=== PATIENT | female | born 1975 | race Caucasian/White ===

== ENCOUNTER → 2016-07-09 | Outpatient (CLI) | payer MEDICAID ==
[~2016-07-09] MED LIST: ALBUTEROL2 PUFFS/17 IN; B COMPLEX & B121 TAB PO; BIAXIN500 MG PO; HYDROCODONE-APA1 TA1 PO; MEDROL 4MG. DOSE4 MG PO; NAPROSYN 500MG500 MG PO; NEXIUM40 MG PO; NORCO 325 MG-51 TAB PO; PREDNISONE 10MG10 MG PO; PROPRANOLOL HCL20 MG PO; SYNTHROID0.025 MG PO; Tramadol HCl50 MG PO; ULTRACET 325 MG1 TAB PO; ULTRAM 50 MG TA50 MG PO; ZITHROMAX Z PA250 MG PO
== END ==
LOC: PT 06-27 10:00 → RT 12:56
DX: R06.02 Shortness of breath (principal)

== ENCOUNTER → 2016-08-07 | Outpatient (CLI) | payer MEDICAID ==
--- NOTE | 2016-08-07 16:54 | RADIOLOGY REPORT PS360 ---
US PELVIS-TRANSVAGINAL ONLY HISTORY: Right-sided pelvic pain RLQ PAIN ORDERING PHYSICIAN: Jay Padron MD PATIENT AGE: 40 years COMPARISON: None FINDINGS: There has been prior hysterectomy and left oophorectomy. There is a small hyperechoic focus at the vaginal cuff measuring 4 mm. This is of questionable clinical significance. The right ovary has an unremarkable appearance measuring 4 x 2.4 cm. Blood flow is present. There are a few small follicles. No cul-de-sac fluid apparent. IMPRESSION: 1. Prior left oophorectomy and hysterectomy with a small hyperechoic focus at the vaginal cuff etiology indeterminate. 2. Unremarkable appearing right ovary
== END ==
LOC: RAD 07-30 13:00
DX: R10.2 Pelvic and perineal pain (principal)

== ENCOUNTER → 2016-08-30 | Outpatient (CLI) | payer MEDICAID ==
--- NOTE | 2016-08-30 15:35 | RADIOLOGY REPORT PS360 ---
CT ABD PELVIS W/O CONTRAST CLINICAL INDICATION: ABD PAIN, H/O BLADDER CA ORDERING PHYSICIAN: Gallo Davis MD PATIENT AGE: 40 years COMPARISON: 02/10/2010 TECHNIQUE: Axial images obtained with sagittal and coronal reformats. PROCEDURE: Oral Contrast: Redicat IV Contrast: [None] . FINDINGS: Lung bases are clear. No focal liver lesion. The gallbladder, spleen, adrenal glands, and pancreas has an unremarkable unenhanced CT appearance. No obstructing renal or ureteral calculi are evident. Tiny punctate calculus is present in the upper pole the right kidney. Tiny umbilical hernia containing fat. No evidence of appendicitis or diverticulitis. No intestinal obstruction or free air. There has been prior hysterectomy. No focal inflammatory change or mass or abnormal fluid collection. Urinary bladder has an unremarkable appearance The presacral stimulator device is noted. No acute bony anomalies. IMPRESSION: 1. No acute intra-abdominal or pelvic pathology. 2. Nonacute findings as described above.
== END ==
LOC: RAD 09:56
DX: R10.9 Unspecified abdominal pain (principal); Z85.51 Personal history of malignant neoplasm of bladder

== ENCOUNTER → 2017-01-29 | Outpatient (CLI) | payer MEDICAID ==
--- NOTE | 2017-01-29 13:32 | RADIOLOGY REPORT PS360 ---
HIP LT 2-3V W/PELVIS IF PERFOR HISTORY: LT HIP PAIN ORDERING PHYSICIAN: Morris Chua MD PATIENT AGE: 41 years COMPARISON: 02/29/2016 FINDINGS: No fracture or dislocation is evident. There are mild osteoarthritic changes of the left tibia and also the right hip. No lytic or blastic change. A neurostimulator device remains in place overlying the right aspect sacrum. IMPRESSION: Mild osteoarthritic change left hip. No significant change from 916
== END ==
LOC: RAD 12:49
DX: M25.552 Pain in left hip (principal)

== ENCOUNTER → 2017-05-23 | Outpatient (CLI) | payer MEDICAID ==
[~2017-05-23] MED LIST changes: +AMITIZA24 MCG; +CENTRUM ADULTS1 EACH; +CLARITIN LIQUI-10 MG; +FLONASE 50 MCG16 GM; +GLUCOSAMINE & C1 CA2; +GOOD SENSE OMEP20 MG; +LISINOPRIL 20MG20 MG; +PANTOPRAZOLE40 M1; +SINGULAIR 10 MG10 MG
[2017-05-30 07:38] LABS: F013-IgE Peanut <0.10 kU/L (Class 0); F017-IgE Hazelnut (Filbert) <0.10 kU/L (Class 0); F018-IgE Brazil Nut <0.10 kU/L (Class 0); F020-IgE Almond <0.10 kU/L (Class 0); F202-IgE Cashew Nut <0.10 kU/L (Class 0); F256-IgE Walnut <0.10 kU/L (Class 0)
== END ==
LOC: LAB 13:37
PROVIDERS: Nurse Practitioner
DX: T78.1XXA Other adverse food reactions, not elsewhere classified, initial encounter (principal)